=== PATIENT | female | born 1980 | race Caucasian/White ===

== ENCOUNTER 2022-04-23 20:47 | Emergency (ER) | payer OTHER, SELFPAY ==
--- NOTE | 2022-04-23 20:52 | ED.PSYCH ---
HPI - Psych General Chief Complaint: General Medical <RAFAL Helton - Last Filed: 04/23/22 20:53> Stated Complaint: medical clearance <RAFAL Helton - Last Filed: 04/23/22 20:53> Time Seen by Provider: 04/23/22 21:43 <RAFAL Helton - Last Filed: 04/23/22 20:53> Source: patient <Cornell Puente MD - Last Filed: 04/23/22 23:16> Mode of arrival: ambulatory <Cornell Puente MD - Last Filed: 04/23/22 23:16> Limitations: no limitations <Cornell Puente MD - Last Filed: 04/23/22 23:16> History of Present Illness HPI Narrative: Patient she is here to be medically cleared to return to [address] she has history of substance abuse and she use fentanyl and cocaine early she is now awake and alert asymptomatic <Cornell Puente MD - Last Filed: 04/23/22 23:16> MD complaint: substance abuse <Cornell Puente MD - Last Filed: 04/23/22 23:16> Onset (ago): hour(s) (8) <Cornell Puente MD - Last Filed: 04/23/22 23:16> History of same: Yes <Cornell Puente MD - Last Filed: 04/23/22 23:16> Relieving factors: none <Cornell Puente MD - Last Filed: 04/23/22 23:16> Exacerbating factors: none <Cornell Puente MD - Last Filed: 04/23/22 23:16> Associated psychiatric symptoms: none <Cornell Puente MD - Last Filed: 04/23/22 23:16> Related Data Allergies/Adverse Reactions: Allergies Allergy/AdvReac Type Severity Reaction Status Date / Time No Known Allergies Allergy Verified 04/23/22 20:52 <RAFAL Helton - Last Filed: 04/23/22 20:53> Review of Systems Constitutional: Constitutional: Reports no additional constitutional complaints <Cornell Puente MD - Last Filed: 04/23/22 23:16> Cardiovascular: Cardiovascular: Reports no additional cardiovascular complaints <Cornell Puente MD - Last Filed: 04/23/22 23:16> Respiratory: Respiratory: Reports no additional respiratory complaints <Cornell Puente MD - Last Filed: 04/23/22 23:16> Gastrointestinal: Gastrointestinal: Reports no additional gastrointestinal complaints <Cornell Puente MD - Last Filed: 04/23/22 23:16> [facility] Past Medical History [facility] Narrative: opioid use disorder/cocaine use disorder <Cornell Puenet MD - Last Filed: 04/23/22 23:16> Social History Social History: Social History Advance Directives: No Advance Directives Information Provided: No <RAFAL Helton - Last Filed: 04/23/22 20:53> Physical Exam Vital Signs: Vital Signs: Last Vital Signs Temp 98.1 F 04/23/22 21:12 Pulse 83 04/23/22 21:12 Resp 18 04/23/22 21:12 BP 151/98 H 04/23/22 21:12 Pulse Ox 98 04/23/22 21:12 O2 Del Method 04/23/22 21:12 BMI result Body Mass Index 33.6 <RAFAL Helton - Last Filed: 04/23/22 20:53> Vital Signs: Last Vital Signs Temp 98.1 F 04/23/22 21:12 Pulse 83 04/23/22 21:12 Resp 18 04/23/22 21:12 BP 151/98 H 04/23/22 21:12 Pulse Ox 98 04/23/22 21:12 O2 Del Method 04/23/22 21:12 BMI result Body Mass Index 33.6 <Cornell Puente MD - Last Filed: 04/23/22 23:16> Const: General: cooperative and healthy appearing <Cornell Puente MD - Last Filed: 04/23/22 23:16> Nutritional Appearance: average body habitus and well nourished <Cornell Puente MD - Last Filed: 04/23/22 23:16> Orientation/consciousness: patient oriented x3 <Cornell Puente MD - Last Filed: 04/23/22 23:16> Limitations: no limitations <Cornell Puente MD - Last Filed: 04/23/22 23:16> HEENT: Head: Yes normal to inspection <Cornell Puente MD - Last Filed: 04/23/22 23:16> Ears: hearing grossly normal bilaterally <Cornell Puente MD - Last Filed: 04/23/22 23:16> Face and sinus: Yes normal facial exam <Cornell Puente MD - Last Filed: 04/23/22 23:16> Mouth: Normal oral and palatal mucosa present <Cornell Puente MD - Last Filed: 04/23/22 23:16> Teeth and gingiva: dentition normal <Cornell Puente MD - Last Filed: 04/23/22 23:16> Throat: Yes posterior oropharynx normal <Cornell Puente MD - Last Filed: 04/23/22 23:16> Neck: Neck: Yes normal visual inspection, Yes full ROM and Yes no lymphadenopathy <Cornell Puente MD - Last Filed: 04/23/22 23:16> Chest: Chest palpation & inspection: normal inspection of the chest <Cornell Puente MD - Last Filed: 04/23/22 23:16> Resp: Effort & Inspection: normal respiratory effort <Cornell Puente MD - Last Filed: 04/23/22 23:16> Auscultation: clear to auscultation bilaterally <Cornell Puente MD - Last Filed: 04/23/22 23:16> Cardio: Jugular venous distension: no JVD <Cornell Puente MD - Last Filed: 04/23/22 23:16> Rate: regular rate <Cornell Puente MD - Last Filed: 04/23/22 23:16> Rhythm: regular rhythm <Cornell Puente MD - Last Filed: 04/23/22 23:16> GI: Inspection: Yes normal to inspection <Cornell Puente MD - Last Filed: 04/23/22 23:16> Palpation (GI): Soft to palpation, not firm, nontender and no guarding <Cornell Puente MD - Last Filed: 04/23/22 23:16> Auscultation: normal bowel sounds <Cornell Puente MD - Last Filed: 04/23/22 23:16> : General: Yes no CVA tenderness <Cornell Puente MD - Last Filed: 04/23/22 23:16> Back/Spine/Pelvis: Back: no CVA tenderness <Cornell Puente MD - Last Filed: 04/23/22 23:16> Neuro: General: patient oriented x3 <Cornell Puente MD - Last Filed: 04/23/22 23:16> Course Course Course Narrative: YENNY 20:50PM - 42yoF is currently on [facility] for residential snf house and she relapsed today she use dope and coke by smoking and sniffing and a assistant program director sent her here for further evaluation and treatment to evaluate if she also ingested fentanyl when she did does drugs. She reports she does not believe she did Fentanyl. Patient denies any symptoms at this time. Plan: Patient reports she will need to drug urine screen. Therefore ordered at this time. <RAFAL Helton - Last Filed: 04/23/22 20:53> Medical Decision Making Lab Data Labs: Lab Results 04/23/22 04/23/22 04/23/22 Range/Units 21:07 21:07 21:07 Urine Color Yellow Urine Appearance Clear Urine pH 5.5 (5.0-9.0) Ur Specific [place] 1.025 (1.005-1.025) Urine Protein 30 (1+) H (Neg-Trace) mg/dL Urine Glucose (UA) Negative (Negative) mg/dL Urine Ketones Trace (Negative) mg/dL Urine Blood Negative (Negative) Urine Nitrite Negative (Negative) Ur Leukocyte Esterase Small (1+) H (Negative) Urine RBC 3-5 H (0-2) /HPF Urine WBC 21-50 H (0-5) /HPF Ur Squamous Epith Cells 6-10 (0-2) /HPF Urine Bacteria 1+ (None Seen) Hyaline Casts 0-2 (0-2) /LPF Urine Test NEGATIVE (NEGATIVE) Urine Opiates Screen POSITIVE H (Not Detect) Urine Fentanyl Screen POSITIVE H (Not Detect) Ur Barbiturates Screen Not Detected (Not Detect) Ur Phencyclidine Scrn Not Detected (Not Detect) Ur Amphetamines Screen Not Detected (Not Detect) U Benzodiazepines Scrn Not Detected (Not Detect) Urine Cocaine Screen POSITIVE H (Not Detect) U Marijuana (THC) Screen Not Detected (Not Detect) <RAFAL Helton - Last Filed: 04/23/22 20:53> Lab Results 04/23/22 04/23/22 04/23/22 Range/Units 21:07 21:07 21:07 Urine Color Yellow Urine Appearance Clear Urine pH 5.5 (5.0-9.0) Ur Specific [place] 1.025 (1.005-1.025) Urine Protein 30 (1+) H (Neg-Trace) mg/dL Urine Glucose (UA) Negative (Negative) mg/dL Urine Ketones Trace (Negative) mg/dL Urine Blood Negative (Negative) Urine Nitrite Negative (Negative) Ur Leukocyte Esterase Small (1+) H (Negative) Urine RBC 3-5 H (0-2) /HPF Urine WBC 21-50 H (0-5) /HPF Ur Squamous Epith Cells 6-10 (0-2) /HPF Urine Bacteria 1+ (None Seen) Hyaline Casts 0-2 (0-2) /LPF Urine Test NEGATIVE (NEGATIVE) Urine Opiates Screen POSITIVE H (Not Detect) Urine Fentanyl Screen POSITIVE H (Not Detect) Ur Barbiturates Screen Not Detected (Not Detect) Ur Phencyclidine Scrn Not Detected (Not Detect) Ur Amphetamines Screen Not Detected (Not Detect) U Benzodiazepines Scrn Not Detected (Not Detect) Urine Cocaine Screen POSITIVE H (Not Detect) U Marijuana (THC) Screen Not Detected (Not Detect) <Cornell Puente MD - Last Filed: 04/23/22 23:16> Discharge Plan Discharge Clinical Impression: Opioid abuse <RAFAL Helton - Last Filed: 04/23/22 20:53> Patient Disposition: Home, Self-Care <RAFAL Helton - Last Filed: 04/23/22 20:53> Instructions: Normal Exam (ED), Opioid Use Disorder (ED) <RAFAL Helton - Last Filed: 04/23/22 20:53> Additional Instructions: Your exam is normal you are clear to go back to the [address], you tested positive for fentanyl <RAFAL Helton Last Filed: 04/23/22 20:53> Interventions: ED Discharge Assessment Last Done: 12/15/22 22:45 <RAFAL Helton - Last Filed: 04/23/22 20:53> Discharge Date/Time: 04/23/22 22:46 <RAFAL Helton - Last Filed: 04/23/22 20:53>
[2022-04-23 21:12] VITALS: BP 151/98; PULSE 83; RESP 18; TEMP 36.7; O2SAT 98; BMI 33.6
[2022-04-23 21:27] LABS: Appearance Urine Clear; Color Urine Yellow; Glucose Urine UA Negative (Negative); Leukocyte Esterase Urine Small (1+) (Negative); Nitrite Urine Negative (Negative); PH 5.5 (5.0-9.0); Specific Gravity - Urine 1.025 (1.005-1.025); UMIC TRIGGER UACC YES; Urine Blood Negative (Negative); Urine Ketones Trace mg/dL (Negative); Urine Protein 30 (1+) mg/dL (Neg-Trace)
[2022-04-23 21:28] LABS: UPreg QC Valid YES; Urine Pregnancy NEGATIVE (NEGATIVE)
[2022-04-23 21:34] LABS: Amphetamine Screen Urine Not Detected (Not Detect); Barbiturates, Urine Not Detected (Not Detect); Benzodiazepines Screen Urine Not Detected (Not Detect); Cannabinoid Screen Urine Not Detected (Not Detect); Cocaine Screen Urine POSITIVE (Not Detect); Fentanyl, urine POSITIVE (Not Detect); Opiate Screen Urine POSITIVE (Not Detect); Phencyclidine Screen Urine Not Detected (Not Detect)
[2022-04-23 21:41] LABS: Bacteria Urine 1+ (None Seen); Hyaline Casts Urine 0-2 /LPF (0-2); UACC Culture Trigger YES; WBC Urine 21-50 /HPF (0-5)
--- NOTE | 2022-04-23 22:27 | PC.NURSE ---
Patient presents to ED from [facility]. patient states that empty bags were found in her room and that she was sent here for drug test. Patient admits to snorting heroin and cocaine earlier today. belongings checked by security. This RN spoke with Steph at [facility] who states that her boss Penny specified that patient is unable to return to [facility] is the drug test is positive for fentanyl- states that the patient would need to go to detox. patient tearful and anxious, reports that she is homeless and will have no where else to go. CARE team aware and spoke with patient.
--- NOTE | 2022-04-23 23:01 | MHC.CARE ---
CARE team met with Pt. 42F in [facility]. No SI/HI/AH/VH reported. Pt. was tearful. Pt. stated she was honest with staff and agreed to the drug test and surrendered the drugs and materials. Pt. reported she is homeless and from the [facility].. Per Pt. she has nowhere to go. CARE team spoke to [facility] staff, and was told Pt. can speak to the director in the morning and may be able to return to the program. Discussed with Dr. Puente and Pt. will be discharged. Pt. was given information for the [place] [facility].
== END 2022-04-23 22:46 | disposition home or self-care (01) ==
PROVIDERS: Physician Assistant Medical; Emergency Provider Emergency Medicine
DX: F11.10 Opioid abuse, uncomplicated (principal); Z79.899 Other long term (current) drug therapy
CPT/HCPCS: 80307; 81001; 81025; 87086; 99282; 99283